=== PATIENT | male | born 1970 | race Two or more races ===

== ENCOUNTER 2017-12-05 08:43 | Outpatient (CLI) | payer OTHER ==
[~2017-12-05 08:43] MED LIST: DOLOGESIC CAPSU1 CAP PO; DRAMAMINE50 M1; IMODIUM A-D2 MG PO; NORFLEX100 MG; ORPH100T PO; PEPCID40 MG PO; PERCOCET 5-3251 EACH PO; TAMS0.4C PO; TRAMADOL HCL-AP1 TAB; ZOFRAN8 MG PO
== END 2017-12-05 08:49 | disposition home or self-care (01) ==
LOC: SONOGRAMA 08:43 → MAMO-SONO 08:45 → SONOGRAMA 08:49
DX: N13.30 Unspecified hydronephrosis (principal)

== ENCOUNTER 2018-04-19 12:24 | Outpatient (CLI) | payer OTHER ==
[~2018-04-19] VITALS: Ht 180.3 cm; Wt 95.3 kg
== END 2018-04-19 12:40 | disposition home or self-care (01) ==
LOC: OFIC 805 12:24
DX: H90.3 Sensorineural hearing loss, bilateral (principal)

== ENCOUNTER 2018-05-28 09:54 | Outpatient (CLI) | payer OTHER ==
[~2018-05-28] VITALS: Ht 152.4 cm; Wt 95.3 kg
== END 2018-05-28 10:15 | disposition home or self-care (01) ==
LOC: OFIC 805 09:54
DX: H69.82 Other specified disorders of Eustachian tube, left ear (principal); H90.42 Sensorineural hearing loss, unilateral, left ear, with unrestricted hearing on the contralateral side; R09.81 Nasal congestion

== ENCOUNTER 2018-07-31 23:55 | Emergency (ER) | payer OTHER ==
[~2018-07-31] VITALS: Ht 177.8 cm; Wt 97.5 kg
[2018-08-01] MEDS ORDERED: ZANTAC 7575 MG (00:10)
[2018-08-01] MEDS ORDERED: BENTIL (00:11)
[2018-08-01] MEDS ORDERED: ZANTAC (00:12)
[2018-08-01] MEDS ORDERED: PNEU16DI2 (00:12)
== END 2018-08-01 10:00 | disposition home or self-care (01) ==
LOC: ER 23:55
DX: K29.60 Other gastritis without bleeding (principal)

== ENCOUNTER 2020-02-10 07:22 | Emergency (ER) | payer OTHER ==
[~2020-02-10] VITALS: Ht 177.8 cm; Wt 98.0 kg
[~2020-02-10 07:22] MED LIST changes: +BENTIL; +PNEU16DI2; +ZANTAC; +ZANTAC 7575 MG
== END 2020-02-10 12:14 | disposition home or self-care (01) ==
LOC: ER 07:22
DX: N20.1 Calculus of ureter (principal); Z03.818 Encounter for observation for suspected exposure to other biological agents ruled out; R10.12 Left upper quadrant pain; R10.32 Left lower quadrant pain; R11.0 Nausea

== ENCOUNTER 2020-05-13 19:44 | Emergency (ER) | payer OTHER ==
[~2020-05-13] VITALS: Ht 177.8 cm; Wt 98.0 kg
[2020-05-13] MEDS ORDERED: ACETAMINOPHEN650 M2 PO (23:32)
== END 2020-05-13 23:53 | disposition home or self-care (01) ==
LOC: ER 19:44
DX: B34.9 Viral infection, unspecified (principal); A90 Dengue fever [classical dengue]; Z03.818 Encounter for observation for suspected exposure to other biological agents ruled out

== ENCOUNTER → 2022-10-20 | Emergency (ER) | payer OTHER ==
[~2022-10-20] VITALS: Ht 180.3 cm; Wt 96.2 kg
[~2022-10-20] MED LIST changes: +ACETAMINOPHEN650 M2 PO
== END | disposition home or self-care (01) ==
LOC: ER 07:09
DX: R53.81 Other malaise (principal); J06.9 Acute upper respiratory infection, unspecified; J02.9 Acute pharyngitis, unspecified; Z20.822 Contact with and (suspected) exposure to COVID-19; Z88.6 Allergy status to analgesic agent